=== PATIENT | male | born 1955 | race Caucasian/White ===

== ENCOUNTER → 2020-11-06 10:22 | Outpatient (BNVA) | payer MEDICARE, BC, SELFPAY | PROVIDERS: Visit Provider Nurse Practitioner | DX: K52.9 Noninfective gastroenteritis and colitis, unspecified (principal) | CPT/HCPCS: 81000 ==

== ENCOUNTER → 2021-03-29 08:45 | Outpatient (BNVA) | payer MEDICARE, BC, SELFPAY | PROVIDERS: PCP Family Medicine Adult Medicine; Visit Provider Family Medicine Adult Medicine | DX: I10 Essential (primary) hypertension (principal); N40.0 Benign prostatic hyperplasia without lower urinary tract symptoms; R63.4 Abnormal weight loss; Z13.6 Encounter for screening for cardiovascular disorders; M19.90 Unspecified osteoarthritis, unspecified site | CPT/HCPCS: 80053; 80061; 82784; 83036; 83516; 84443; 85025; G0103 ==

== ENCOUNTER → 2022-08-24 09:35 | Outpatient (BNVA) | payer MEDICARE, BC, SELFPAY | PROVIDERS: PCP Family Medicine Adult Medicine; Visit Provider Dermatology | DX: Z85.828 Personal history of other malignant neoplasm of skin (principal); Z98.890 Other specified postprocedural states | CPT/HCPCS: 88305 ==

== ENCOUNTER → 2022-09-26 14:05 | Outpatient (BNVA) | payer MEDICARE, BC, SELFPAY | PROVIDERS: PCP Family Medicine Adult Medicine; Visit Provider Surgery | DX: Z86.010 Personal history of colon polyps (principal); Z12.11 Encounter for screening for malignant neoplasm of colon | CPT/HCPCS: 99203 ==

== ENCOUNTER 2022-10-31 05:49 | Day surgery (SDC) | payer MEDICARE, BC, SELFPAY ==
[2022-10-29 10:40] VITALS: BMI 23.5
[2022-10-31 06:10] VITALS: BP 138/91; PULSE 46; RESP 17; TEMP 36.1; O2SAT 98
[2022-10-31] MEDS: sodium chloride 0.9% 1,000 ML 30 ML IV (06:11)
--- NOTE | 2022-10-31 06:52 | ANES.PREANE2 ---
Pre-Anesthetic Assessment Height/Weight: Height 1.78 m Weight 74.389 kg Temp Pulse Resp BP Pulse Ox O2 Del Method 97.0 F L 46 L 17 138/91 98 Room Air 10/31/22 06:10 10/31/22 06:10 10/31/22 06:10 10/31/22 06:10 10/31/22 06:10 10/31/22 06:10 Preop Diagnosis: history of colon polyps Operation Date: 10/31/22 07:00 Proposed Procedures p Colonoscopy 05294,Z86.010,Z12.11(Not Applicable) - Sunil Figueredo DO Familial anesthetic complications: none Was Beta Ольга taken within 24 hours: N/A Was Clonidine taken within 24 hours: N/A Last intake: Intake Last Liquid Date 10/30/22 Last Liquid Time 22:00 Last Solid Date 10/29/22 Last Solid Time 20:00 Social No alcohol and No tobacco Exam alert, oriented x 3, clear to auscultation bilaterally and regular rate & rhythm Airway Submandibular: within normal limits Cervical ROM: within normal limits Mallampati: Class II Dentition: full Pulmonary Sleep Apnea CV/HEM Hypertension None reported Hepatic None reported GI None reported Metabolic None reported Musc/skel None reported Neuropsych None reported Anesthetic Plan ASA status: 2 Anesthesia: MAC Risk of > 500 ml blood loss (7ml/kg in children): No Medications/Allergies Home Medications Medication Instructions Recorded Confirmed Last Taken Type zonisamide 100 mg capsule 100 mg PO DAILY muscle movements 02/15/21 10/31/22 10/30/22 Rx (Zonegran) #30 caps amlodipine 2.5 mg tablet 2.5 mg PO .every other day High 05/22/22 10/31/22 10/29/22 Rx blood pressure #45 tabs tamsulosin 0.4 mg capsule 0.4 mg PO DAILY PRN Prostate 08/22/22 10/31/22 10/29/22 Rx medication #90 caps amoxicillin 500 mg tablet 500 mg PO TID 10/29/22 10/31/22 10/30/22 History Allergies Allergy/AdvReac Type Severity Reaction Status Date / Time No Known Allergies Allergy Verified 10/31/22 06:03 Current Medications Generic Name Dose Route Start Last Admin Trade Name Freq PRN Reason Stop Dose Admin Sodium Chloride 1,000 mls @ 30 mls/hr 10/31/22 06:00 10/31/22 06:11 Sodium Chloride 0.9% IV 11/01/22 05:59 30 mls/hr .Q24H JUAN ANTONIO Administration PFSH Anesthesia Medical History (Updated 09/26/22 @ 15:08 by Sunil Figueredo DO) BPH (benign prostatic hyperplasia) 04/2015 COVID Positive home COVID test 01/03/2022. Essential (primary) hypertension H/O solar lentigo 07/2015 History of colon polyps History of elevated PSA PSA 2 in 2015, PSA 2.5 07/2017 & 3.3 01/2018, PSA 2.87 04/2019 Hx of herpes zoster Hyperlipidemia Myoclonus dystonia 2012 MARY (obstructive sleep apnea) CPAP 16 years ago, off now Osteoarthritis Periodic limb movement sleep disorder RLS (restless legs syndrome) Surgical History H/O hernia repair 2006 History of right inguinal hernia repair 2006 History of varicose vein ligation 2018 Hx of colonoscopy 2016 & Polyps x2 benign Family History Mother Cancer Breast and uterine Father Hypertension Dementia Alzheimer's Disease Brother Cancer skin Hypertension Social History Smoking and tobacco status: never smoked Quit status (tobacco): has quit using tobacco Year quit tobacco: 08/21/1972 Alcohol intake: former Substance/Drug Use: never Adopted: No Marital status: Number of children: 2 Number of grandchildren: 0 service: Yes Current occupational status: retired Data Anesthesia Cardiac Studies: No Data to Display
--- NOTE | 2022-10-31 07:01 | PM.HP ---
Providers/Chief Complaint Primary Care Provider: Phillip Mckeon MD Chief Complaint: Z86.010, Z12.11 History of Present Illness Harjit Garay is a 67 year old male here for colonoscopy Medications/Allergies Home Medications Medication Instructions Recorded Confirmed Last Taken Type zonisamide 100 mg capsule 100 mg PO DAILY muscle movements 02/15/21 10/31/22 10/30/22 Rx (Zonegran) #30 caps amlodipine 2.5 mg tablet 2.5 mg PO .every other day High 05/22/22 10/31/22 10/29/22 Rx blood pressure #45 tabs tamsulosin 0.4 mg capsule 0.4 mg PO DAILY PRN Prostate 08/22/22 10/31/22 10/29/22 Rx medication #90 caps amoxicillin 500 mg tablet 500 mg PO TID 10/29/22 10/31/22 10/30/22 History Allergies Allergy/AdvReac Type Severity Reaction Status Date / Time No Known Allergies Allergy Verified 10/31/22 06:03 PFSH Acute PFSH: Medical History (Updated 09/26/22 @ 15:08 by Sunil Figueredo DO) BPH (benign prostatic hyperplasia) 04/2015 COVID Positive home COVID test 01/03/2022. Essential (primary) hypertension H/O solar lentigo 07/2015 History of colon polyps History of elevated PSA PSA 2 in 2015, PSA 2.5 07/2017 & 3.3 01/2018, PSA 2.87 04/2019 Hx of herpes zoster Hyperlipidemia Myoclonus dystonia 2012 MARY (obstructive sleep apnea) CPAP 16 years ago, off now Osteoarthritis Periodic limb movement sleep disorder RLS (restless legs syndrome) Surgical History H/O hernia repair 2006 History of right inguinal hernia repair 2006 History of varicose vein ligation 2018 Hx of colonoscopy 2017 & Polyps x2 benign Family History Mother Cancer Breast and uterine Father Hypertension Dementia Alzheimer's Disease Brother Cancer skin Hypertension Social History Smoking and tobacco status: never smoked Quit status (tobacco): has quit using tobacco Year quit tobacco: 08/21/1972 Alcohol intake: former Substance/Drug Use: never Adopted: No Marital status: Number of children: 2 Number of grandchildren: 0 service: Yes Current occupational status: retired Vitals/I&O/Wt Last Vital Signs Temp 97.0 F L 10/31/22 06:10 Pulse 46 L 10/31/22 06:10 Resp 17 10/31/22 06:10 BP 138/91 10/31/22 06:10 Pulse Ox 98 10/31/22 06:10 O2 Del Method Room Air 10/31/22 06:10 Weight last 48 hrs Weight 164 lb A&P Assessment and plan (1) Colon cancer screening: Plan Colonoscopy Attestations Medical Necessity Statement*: home Coding Level of Care Code Acute Code for Chg Fwd Diagnoses Colon cancer screening Z12.11
[2022-10-31 07:33] VITALS: BP 105/67; PULSE 43; RESP 16; TEMP 36.1; O2SAT 99
[2022-10-31 07:43] VITALS: BP 104/69; PULSE 44; RESP 16; O2SAT 100
--- NOTE | 2022-10-31 14:22 | ANE.PACU2 ---
Inpatient post-anesthesia follow up: Airway intact: Yes Vital signs: Temperature 97 F Pulse Rate 44 Respiratory Rate 16 Blood Pressure 104/69 Pulse Oximetry 100 Oxygen Delivery Me thod Room Air Oxygen Flow Rate Fraction of Inspir ed Oxygen Hydration adequate: Yes Nausea and vomiting: No Pain level: 1 Mental status: Baseline
== END 2022-10-31 08:18 | disposition home or self-care (01) ==
PROVIDERS: PCP Family Medicine Adult Medicine; Visit Provider Surgery
PROC: 0DJD8ZZ Inspection of Lower Intestinal Tract, Via Natural or Artificial Opening Endoscopic (ICD-10-PCS; CPT 45378; principal; 2022-10-31 07:00)
DX: Z12.11 Encounter for screening for malignant neoplasm of colon (principal); Z86.010 Personal history of colon polyps; G47.30 Sleep apnea, unspecified; I10 Essential (primary) hypertension; K63.5 Polyp of colon
CPT/HCPCS: 45385; 88305; J2704; J3490; J7030

== ENCOUNTER 2022-11-01 10:16 | Emergency (ER) | payer MEDICARE, BC, SELFPAY ==
[2022-11-01 10:22] VITALS: BP 146/90; PULSE 43; RESP 16; TEMP 36.8; O2SAT 98; BMI 23.5
[2022-11-01 10:49] VITALS: BP 146/90; PULSE 44; O2SAT 97
--- NOTE | 2022-11-01 10:50 | ED_ITS ---
HPI - Male Genitourinary General: Chief complaint: Urogenital-Male Stated complaint: post op complications Time Seen by Provider: 11/01/22 10:29 Source: patient Mode of arrival: ambulatory History of Present Illness: 67-year-old male presents emergency room complaining difficulty with urination he was getting up about every 10 minutes to urinate last night he denies any dysuria urgency. He recently had a colonoscopy since he had the colonoscopy he had difficult time emptying his bladder and feels like he needs to go very fr equently in small amounts with no dysuria. Prior to his procedure he was having 2-3 episodes of nocturia per night. Onset (ago): day(s) Location: abdomen (suprapubic) Severity: moderate Relieving factors: urination Exacerbating factors: urination Associated symptoms: Reports nausea and urinary retention; Deny discharge, dysuria, fevers/chills, hematuria, rash, swelling, urinary incontinence, mass or vomiting Review of Systems Const: Denies: fever(s), chills, body aches, change in appetite, fatigue or malaise ENMT: Denies: throat pain, ear or mastoid pain, nasal discharge or nasal congestion Card: Denies: chest pain, edema, dyspnea on exertion or orthopnea Resp: Denies: dyspnea, productive cough or non-productive cough GI: Reports: abdominal pain and nausea; Denies: vomiting : Denies: dysuria, urinary frequency, urinary urgency, urinary incontinence or hematuria Musc: Reports: back pain Skin/Breast: Denies: rash or pruritus [facility] PFSH: Medical History BPH (benign prostatic hyperplasia) 04/2015 COVID Positive home COVID test 01/03/2022. Essential (primary) hypertension H/O solar lentigo 07/2015 History of colon polyps History of elevated PSA PSA 2 in 2015, PSA 2.5 07/2017 & 3.3 01/2018, PSA 2.87 04/2019 Hx of herpes zoster Hyperlipidemia Myoclonus dystonia 2012 MARY (obstructive sleep apnea) CPAP 16 years ago, off now Osteoarthritis Periodic limb movement sleep disorder RLS (restless legs syndrome) Surgical History H/O hernia repair 2007 History of right inguinal hernia repair 2007 History of varicose vein ligation 2018 Hx of colonoscopy 2017 & Polyps x2 benign Family History Mother Cancer Breast and uterine Father Hypertension Dementia Alzheimer's Disease Brother Cancer skin Hypertension Social History Smoking and tobacco status: never smoked Quit status (tobacco): has quit using tobacco Year quit tobacco: 08/21/1972 Alcohol intake: former Substance/Drug Use: never Adopted: No Marital status: Number of children: 2 Number of grandchildren: 0 service: Yes Current occupational status: retired Physical Exam Const: GENERAL APPEARANCE: cooperative and comfortable ORIENTATION/CON SCIOUSNESS: Yes awake, Yes oriented to person, Yes oriented to place and Yes oriented to time HENMT: COMMON NORMALS: normocephalic, atraumatic and hearing grossly normal bilaterally HEAD & SCALP: normocephalic and atraumatic Resp: COMMON NORMALS: normal respiratory effort, No retractions, No use of accessory muscles and clear to auscultation bilaterally AUSCULTATION: clear to auscultation bilaterally Cardio: COMMON NORMALS: regular rate, regular rhythm and No murmurs present (Cardio) RATE: regular rate RHYTHM: regular rhythm GI: COMMON NORMALS: No hepatosplenomegaly present AUSCULTATION: Yes normoactive bowel sounds PALPATION: Yes Tenderness to palpation present (GI) (suprapubic tender), No Guarding due to palpation present (GI) and Yes No hepatosplenomegaly present : COMMON NORMALS: Yes no CVA tenderness BLADDER/KIDNEY EXAM: Yes no CVA tenderness Back/Pelvis: COMMON NORMALS: no CVA tenderness Extremity: COMMON NORMALS: normal to inspection, capillary refill normal, no clubbing, cyanosis or edema, no calf tenderness and no pedal edema Neuro: SENSORIUM/ORIENTATION: Yes oriented to person, Yes oriented to place and Yes oriented to time Skin: COMMON NORMALS: no rashes or lesions noted GENERAL SKIN EXAM: no rashes or lesions noted Course Vital Signs: Vital signs: Vital Signs Temperature 98.2 F 11/01/22 10:22 Pulse Rate 45 L 11/01/22 12:34 Respiratory Rate 12 11/01/22 12:34 Blood Pressure 127/86 11/01/22 12:34 Pulse Oximetry 98 11/01/22 12:34 Oxygen Delivery Me thod Room Air 11/01/22 10:22 MDM - Male Medical Decision Making Patient unable to completely empty his bladder had nearly 400 mL after attempting to completely evacuate his bladder. Leg bag placed started on tamsulosin 1.4 mg twice daily. Case management make arrangements for follow-up with urology. Medical Records I reviewed the patient's medical records. Lab Data I reviewed the patient's lab results. 11/01/22 10:50 11/01/22 10:50 Laboratory Results WBC 5.2 10^3/uL (4.0-10.0) 11/01/22 10:50 RBC 4.43 10^6/uL (4.1-5.3) 11/01/22 10:50 Hgb 13.6 g/dL (11.7-16.6) 11/01/22 10:50 Hct 41.4 % (42.0-52.0) L 11/01/22 10:50 MCV 93.5 fl (80-94) 11/01/22 10:50 MCH 30.7 pg (28.0-34.0) 11/01/22 10:50 MCHC 32.9 g/dL (30.0-36.0) 11/01/22 10:50 RDW 12.4 % (12.1-15.1) 11/01/22 10:50 Plt Count 121 10^3/cmm (130-400) L 11/01/22 10:50 MPV 11.6 fL (7.4-10.4) H 11/01/22 10:50 Neut % (Auto) 52.7 % 11/01/22 10:50 Lymph % (Auto) 34.0 % 11/01/22 10:50 [place] % (Auto) 11.2 % 11/01/22 10:50 Eos % (Auto) 1.5 % 11/01/22 10:50 Baso % (Auto) 0.4 % 11/01/22 10:50 Neut # (Auto) 2.74 10^3/uL (1.8-7.7) 11/01/22 10:50 Lymph # (Auto) 1.8 10^3/uL (0.8-4.8) 11/01/22 10:50 [place] # (Auto) 0.6 10^3/uL (0.2-0.9) 11/01/22 10:50 Eos # (Auto) 0.1 10^3/uL (0.0-0.8) 11/01/22 10:50 Baso # (Auto) 0.0 10^3/uL (0.0-0.1) 11/01/22 10:50 Nucleated RBC % (auto) 0 % 11/01/22 10:50 Nucleated RBCs # 0.0 /100WBC 11/01/22 10:50 Sodium 138 mmol/L (136-145) 11/01/22 10:50 Potassium 3.9 mmol/L (3.5-5.1) 11/01/22 10:50 Chloride 106 mmol/L (98-107) 11/01/22 10:50 Carbon Dioxide 22 mmol/L (22-29) 11/01/22 10:50 Anion Gap 13.9 (5-19) 11/01/22 10:50 BUN 10 mg/dL (8-23) 11/01/22 10:50 Creatinine 0.8 mg/dL (0.7-1.2) 11/01/22 10:50 GFR Calculation 96.1 mL/min (90-130) 11/01/22 10:50 Glucose 85 mg/dL (65-115) 11/01/22 10:50 Calculated Osmolality 284 mOsm/kg (285-295) L 11/01/22 10:50 Calcium 8.9 mg/dL (8.5-10.5) 11/01/22 10:50 Urine Color Yellow (Yellow) 11/01/22 10:53 Urine Appearance Clear (CLEAR) 11/01/22 10:53 Urine pH 7 (5-7) 11/01/22 10:53 Ur Specific [place] 1.010 (1.005-1.030) 11/01/22 10:53 Urine Protein Neg (Negative) 11/01/22 10:53 Urine Glucose (UA) Norm (Normal) 11/01/22 10:53 Urine Ketones Negative (Negative) 11/01/22 10:53 Urine Blood 2+ (Negative) H 11/01/22 10:53 Urine Nitrate Negative (Negative) 11/01/22 10:53 Urine Bilirubin Neg (Negative) 11/01/22 10:53 Urine Urobilinogen Neg mg/dL (Negative) 11/01/22 10:53 Ur Leukocyte Esterase Negative (Negative) 11/01/22 10:53 Urine RBC 0-4 /hpf (0-2) H 11/01/22 10:53 Urine WBC None /hpf (0-5) 11/01/22 10:53 Ur Squamous Epith Cells None /hpf (0-5) 11/01/22 10:53 Amorphous Sediment Not Reportable 11/01/22 10:53 Urine Bacteria None /hpf (NONE) 11/01/22 10:53 Discharge Plan Discharge Patient Disposition: Home Clinical Impression: Acute retention of urine, BPH (benign prostatic hyperplasia) Condition: Stable Prescriptions: New tamsulosin 0.4 mg capsule 0.4 mg PO BID Qty: 60 0RF No Action tamsulosin 0.4 mg capsule 0.4 mg PO DAILY PRN (Reason: Prostate medication) Qty: 90 2RF amoxicillin 500 mg tablet 500 mg PO TID amlodipine 2.5 mg tablet 2.5 mg PO EVERY OTHER DAY Zonegran 100 mg capsule 200 mg PO QAM Discharge Orders: Discharge ED (Routine); Ordered 11/01/22 Ordered By: Adal Brasher Referrals: Phillip Mckeon MD [Primary Care Provider] - Discharge Diet: Usual diet Discharge Activity: Increase activity as tolerated Patient Instructions: Urinary Retention in Men (ED), Opioid Safety, Pain Management Activity Restrictions/Additional Instructions: Case Management will make arrangements for follow up with urology. Urine to collect the stone to submit for pathology Coding Level of Care Code ED Vice President Of Human Resources for Ike Gaona
[2022-11-01 11:08] LABS: Basophils % 0.4 %; Eosinophils # 0.1 10^3/uL (0.0-0.8); Eosinophils % 1.5 %; Hematocrit 41.4 % (42.0-52.0); Hemoglobin 13.6 g/dL (11.7-16.6); Lymphocytes # 1.8 10^3/uL (0.8-4.8); Mean Corpuscular HGB Conc 32.9 g/dL (30.0-36.0); Mean Corpuscular Hemoglobin 30.7 pg (28.0-34.0); Mean Corpuscular Volume 93.5 fl (80-94); Mean Platelet Volume 11.6 fL (7.4-10.4); Monocytes # 0.6 10^3/uL (0.2-0.9); Monocytes % 11.2 %; Neutrophils # 2.74 10^3/uL (1.8-7.7); Neutrophils % 52.7 %; Nucleated Red Blood Cells % 0 %; Platelet Count 121 10^3/cmm (130-400); Red Blood Count 4.43 10^6/uL (4.1-5.3); Red Cell Distribution Width 12.4 % (12.1-15.1); White Blood Count 5.2 10^3/uL (4.0-10.0)
[2022-11-01 11:11] LABS: Add Urine Microscopic? YES; Bilirubin Urine Neg (Negative); Blood Urine 2+ (Negative); Glucose Urine UA Norm (Normal); Ketones Urine Negative (Negative); Leukocyte Esterase Urine Negative (Negative); Nitrate Urine Negative (Negative); Protein Urine Neg (Negative); Urine Appearance Clear (CLEAR); Urine Color Yellow (Yellow); Urobilinogen Urine Neg (Negative); pH Urine 7 (5-7)
[2022-11-01 11:12] LABS: Add Urine Culture? No; RBC Urine 0-4 /hpf (0-2)
[2022-11-01 11:26] LABS: Anion Gap 13.9 (5-19); Blood Urea Nitrogen 10 mg/dL (8-23); Calcium 8.9 mg/dL (8.5-10.5); Carbon Dioxide 22 mmol/L (22-29); Chloride 106 mmol/L (98-107); Creatinine Clr Calc Pharmacy 91.9445; Glomerular Filtration Rate 96.1 mL/min (90-130); Glucose 85 mg/dL (65-115); Osmolality Calculated 284 mOsm/kg (285-295); Potassium 3.9 mmol/L (3.5-5.1); Sodium 138 mmol/L (136-145)
[2022-11-01 11:41] VITALS: BP 127/86; PULSE 44; RESP 19; O2SAT 98
[2022-11-01 12:34] VITALS: BP 127/86; PULSE 45; RESP 12; O2SAT 98
--- NOTE | 2022-11-02 08:19 | DCPLANNER ---
Addendum entered by Pooja Elise 11/21/22 11:19: Patient had a follow up appointment scheduled with urology - patient did attend appointment. Addendum entered by Pooja Elise 11/02/22 09:58: Patient has a follow up appointment scheduled for Saturday, November 19, 2022 at 1:[address] Quintana at urology. Original Note: community services manager had message to schedule a follow up appointment for patient with urology. community services manager sent patients information to the front office staff at urology. Patients information will be printed and reviewed. Clinic will call patient with appointment information.
== END 2022-11-01 12:35 | disposition home or self-care (01) ==
PROVIDERS: Emergency Provider Family Medicine; PCP Family Medicine Adult Medicine
DX: N40.1 Benign prostatic hyperplasia with lower urinary tract symptoms (principal); R33.8 Other retention of urine; Z87.891 Personal history of nicotine dependence; I10 Essential (primary) hypertension; E78.5 Hyperlipidemia, unspecified
CPT/HCPCS: 36415; 51702; 51798; 80048; 81001; 85025; 99283

== ENCOUNTER 2022-11-07 11:39 | Emergency (ER) | payer MEDICARE, BC, SELFPAY ==
[2022-11-07 11:46] VITALS: BP 126/78; PULSE 49; RESP 14; TEMP 36.5; O2SAT 97; BMI 23.5
--- NOTE | 2022-11-07 12:02 | W.ED.MALEGU ---
HPI - Male Genitourinary General: Chief complaint: Urogenital-Male Stated complaint: wants his catheter taken out Time Seen by Provider: 11/07/22 11:51 Source: patient and family Mode of arrival: ambulatory Limitations: no limitations History of Present Illness: Patient returns to the emergency department to have his Doe catheter removed. It was placed in the emergency department on the of this month after he had an episode of acute urinary retention which occurred shortly after a screening colonoscopy was performed. Patient states that he has been doing well since that time. He states that he has not had fevers chills or other discomfort. He states obviously the Doe catheter is little uncomfortable at times but essentially its been tolerable. He has been taking tamsulosin twice daily as previously instructed. He previously was prescribed tamsulosin but had only been taking on an intermittent basis in the past. He does describe a history of nocturia with having to get up 3-4 times at night for emptying his bladder. He has not had a prior history of urinary retention nor does he see a urologist. He denies any other constitutional complaints at this time. Associated symptoms: Deny hematuria Review of Systems Const: Denies: fever(s) or chills GI: Denies: abdominal pain : Denies: flank pain or hematuria Musc: Denies: back pain or extremity pain Skin/Breast: Denies: rash, pruritus or erythema PFSH ED PFSH: Medical History BPH (benign prostatic hyperplasia) 04/2015 COVID Positive home COVID test 01/03/2022. Essential (primary) hypertension H/O solar lentigo 07/2015 History of colon polyps History of elevated PSA PSA 2 in 2015, PSA 2.5 07/2017 & 3.3 01/2018, PSA 2.87 04/2019 Hx of herpes zoster Hyperlipidemia Myoclonus dystonia 2012 MARY (obstructive sleep apnea) CPAP 16 years ago, off now Osteoarthritis Periodic limb movement sleep disorder RLS (restless legs syndrome) Surgical History H/O hernia repair 2007 History of right inguinal hernia repair 2007 History of varicose vein ligation 2018 Hx of colonoscopy 2017 & Polyps x2 benign Family History Mother Cancer Breast and uterine Father Hypertension Dementia Alzheimer's Disease Brother Cancer skin Hypertension Social History Smoking and tobacco status: never smoked Quit status (tobacco): has quit using tobacco Year quit tobacco: 08/21/1972 Alcohol intake: former Substance/Drug Use: never Adopted: No Marital status: Number of children: 2 Number of grandchildren: 0 service: Yes Current occupational status: retired Physical Exam Narrative: EXAM NARRATIVE: The patient is alert cooperative in no acute distress. Makes good eye contact and answers questions in a goal-directed fashion. Const: COMMON NORMALS: no acute distress, average body habitus and patient oriented x3 GENERAL APPEARANCE: cooperative and comfortable ORIENTATION/CONSCIOUSNESS: Yes awake HENMT: COMMON NORMALS: normocephalic and moist oral mucous membranes HEAD & SCALP: normal to inspection and normocephalic Eye: COMMON NORMALS: Equal, round and reactive pupils present and conjunctivae normal CONJUNCTIVA: Yes conjunctivae normal PUPIL: Yes Equal, round and reactive pupils present Neck/C-Spine: COMMON NORMALS: full ROM Chest: COMMONS NORMALS: normal inspection of the chest Resp: COMMON NORMALS: normal respiratory effort EFFORT & INSPECTION: Yes able to speak in complete sentences Cardio: COMMON NORMALS: Peripheral pulses 2+ throughout PERIPHERAL PULSES: Peripheral pulses 2+ throughout GI: COMMON NORMALS: Normal to inspection, nondistended, normoactive bowel sounds present : BLADDER/KIDNEY EXAM: Yes catheter in place Catheter type (Male): urethral (Clear urine) Back/Pelvis: COMMON NORMALS: thoraco-lumbar ROM normal Extremity: COMMON NORMALS: normal to inspection and full ROM Neuro: COMMON NORMALS: patient oriented x3, moves all extremities and gait normal Skin: COMMON NORMALS: no rashes or lesions noted GENERAL SKIN EXAM: no rashes or lesions noted Course Vital Signs: Vital signs: Vital Signs Temperature 97.7 F 11/07/22 11:46 Pulse Rate 49 L 11/07/22 11:46 Respiratory Rate 14 11/07/22 11:46 Blood Pressure 126/78 11/07/22 11:46 Pulse Oximetry 97 11/07/22 11:46 Oxygen Delivery Me thod Room Air 11/07/22 11:46 MDM - Male Medical Decision Making Patient with a remote history of BPH likely who initially presented to the emergency department with an acute urinary retention and had a Doe catheter placed. Since that time he has been doing well and presented back to the emergency department to have his Doe removed as he had no other resources available to him in the terms of urology appointment was not until next week and his primary care doctor was not available today. The patient's been doing well and stable. The Doe cath will be removed and he was educated on what to expect post Doe catheter removal. We advised him to engage in normal activities including fluid intake today and to ensure that he does produce urine and normal amounts throughout the day. He was further instructed that if he did not have any urine output in 8 hours or more he should return to the emergency department for reevaluation and consideration for replacement of the catheter. He apparently has been taking tamsulosin for the last week on a twice daily basis and I advised him to continue it twice daily for 1 more day and then go back to the usual customary once daily dose. He is clinically stable has no evidence of suggest other ongoing emergency medical conditions at this time and does have urology follow-up. Discharge Plan Discharge Patient Disposition: Home Clinical Impression: Acute retention of urine, Encounter for Doe catheter removal Condition: Stable Prescriptions: No Action tamsulosin 0.4 mg capsule 0.4 mg PO DAILY PRN (Reason: Prostate medication) Qty: 90 2RF amoxicillin 500 mg tablet 500 mg PO TID amlodipine 2.5 mg tablet 2.5 mg PO EVERY OTHER DAY Zonegran 100 mg capsule 200 mg PO QAM tamsulosin 0.4 mg capsule 0.4 mg PO BID Qty: 60 0RF Discharge Orders: Discharge ED (Routine); Ordered 11/07/22 Ordered By: Donte Levy Referrals: Phillip Mckeon MD [Primary Care Provider] - Discharge Diet: Usual diet Discharge Activity: Resume usual activity Patient Instructions: Opioid Safety, Pain Management Activity Restrictions/Additional Instructions: As we discussed it is important you drink plenty of fluids today to at least 1 to 2 quarts of water in addition to what other fluids you normally drink. Ensure that you are continue to have urine output and if you do not have urine output in the next 8 hours and feel fullness bloated pressure sensation then return to this emergency department for reevaluation. If you are doing well you may reduce your tamsulosin tomorrow to once daily as we discussed. Follow-up with Dr. Quintana the urologist as scheduled. Coding Level of Care Code ED Tax Form Preparer for Ike Gaona
--- NOTE | 2022-11-07 12:21 | PC.NURSE ---
PT ROBERTSON CATHETER REMOVED. 10ML PULLED FROM CATHETER BALLOON. PT TOLERATED WELL.
--- NOTE | 2022-11-07 12:26 | PC.NURSE ---
ROBERTSON REMOVED. PATIENT TOLERATED PROCEDURE WELL.
== END 2022-11-07 12:27 | disposition home or self-care (01) ==
PROVIDERS: Emergency Provider Emergency Medicine; PCP Family Medicine Adult Medicine
DX: Z46.6 Encounter for fitting and adjustment of urinary device (principal); R33.9 Retention of urine, unspecified; Z87.891 Personal history of nicotine dependence; I10 Essential (primary) hypertension; E78.5 Hyperlipidemia, unspecified
CPT/HCPCS: 99282

== ENCOUNTER → 2022-11-14 11:22 | Outpatient (BNVA) | payer MEDICARE, BC, SELFPAY | PROVIDERS: PCP Family Medicine Adult Medicine; Visit Provider Nurse Practitioner Family | DX: L81.4 Other melanin hyperpigmentation; D22.5 Melanocytic nevi of trunk; Z71.89 Other specified counseling; L85.3 Xerosis cutis; L57.8 Other skin changes due to chronic exposure to nonionizing radiation; D36.15 Benign neoplasm of peripheral nerves and autonomic nervous system of abdomen; L72.0 Epidermal cyst; L57.0 Actinic keratosis; S80.861A Insect bite (nonvenomous), right lower leg, initial encounter; W57.XXXA Bitten or stung by nonvenomous insect and other nonvenomous arthropods, initial encounter; S80.811A Abrasion, right lower leg, initial encounter; X58.XXXA Exposure to other specified factors, initial encounter; Z85.828 Personal history of other malignant neoplasm of skin | CPT/HCPCS: 10120; 17000; 17003; 99214 ==

== ENCOUNTER → 2022-11-19 13:18 | Outpatient (BNVA) | payer MEDICARE, BC, SELFPAY | PROVIDERS: PCP Family Medicine Adult Medicine; Visit Provider Urology | DX: R33.8 Other retention of urine (principal); R31.0 Gross hematuria; N40.1 Benign prostatic hyperplasia with lower urinary tract symptoms; N13.8 Other obstructive and reflux uropathy | CPT/HCPCS: 51741; 51798; 52000; 81003; 87086; 88112; 99203 ==

== ENCOUNTER 2022-12-04 09:45 | Outpatient (CLI) | payer MEDICARE, BC, SELFPAY ==
--- NOTE | 2022-12-04 10:00 | CT_ITS ---
WS: [id number] CT ABDOMEN AND PELVIS WITH AND WITHOUT CONTRAST HISTORY: hematuria TECHNIQUE: Unenhanced 5 mm axial imaging first performed through the abdomen. Post contrast imaging t hrough the abdomen and pelvis. Oral contrast has been provided. Sagittal and coronal reformats are s ubmitted. All CT scans at [facility] use at least one of these dose optimization techniques: automated exposure control; mA and/or kV adjustment per patient size (includes targeted exams where d ose is matched to clinical indication); or iterative reconstruction. CONTRAST: Omnipaque 300; 100 mL IV. DLP: 1470.99 mGy.cm COMPARISON: None available. Subpleural 4 mm nodule LEFT lung base. Heart is normal size. No pneumonia. RIGHT kidney: 10.9 cm in length. Nonobstructing calcification mid renal pelvis 5 mm. There is an extr arenal pelvis. There are a few too small to characterize cortical hypodensities. No solid enhancing m ass. Delayed imaging demonstrates partial contrast opacification of the ureter. Tortuous proximal ure ter. There is no ureteral dilatation. There is a long segment of the ureter which does not fill with contrast. Distal ureter is normal. LEFT kidney: 10.9 cm in length. There are multiple nonobstructing calcifications in the mid to lower renal pelvis. The largest cluster of calcifications with a maximum diameter of 11 mm. No solid mass o r obstruction. Extrarenal pelvis. Distention of nearly the entire LEFT ureter. Ureter is tortuous. Well-distended urinary bladder. Prostate gland is enlarged encroaching into the bladder. Prostate radha sures 5.2 x 5.3 x 6.3 cm. No ureteral obstruction. No intraluminal filling defect. Prior to contrast filling the urinary bladder there are 2 round foci of increased density which may be recently passed calcifications. Normal liver and portal vein. Negative gallbladder and spleen. No pancreatic mass. Negative adrenal g lands. Mild atherosclerosis aorta with no aneurysm. No cord or contrast is present within the GI tract. Normal appearance of the stomach and small bowel. No obstruction. Appendix is not definitely identified. Prior abdominal wall hernia repair on the LEF T. No ascites and no adenopathy. No destructive bone lesions. CT/CT abdomen pelvis wo/w [address]2000 IMPRESSION: 1. Bilateral nephrolithiasis. No renal obstruction. 2. Single calcification RIGHT kidney measures 5 mm. 3. Several clusters of calcifications in the mid to lower LEFT renal pelvis wi th the largest cluster measuring 11 mm. 4. Only partial opacification of the RIGHT ureter. No ureteral obstruction or masses are identified. 5. There are several foci of increased density in the urinary bladder which ma y be recently passed calcifications measuring approximately 2 mm. 6. Marked prostate enlargement encroaching into the bladder. 7. No ascites or adenopathy.
[2022-12-04] MEDS: iohexol 350 mg/mL 500 mL Btl (per mL) IV (10:16)
== END 2022-12-04 09:46 | disposition home or self-care (01) ==
PROVIDERS: PCP Family Medicine Adult Medicine; Visit Provider Urology
DX: R31.0 Gross hematuria (principal); N20.0 Calculus of kidney; N28.89 Other specified disorders of kidney and ureter; N40.1 Benign prostatic hyperplasia with lower urinary tract symptoms; N13.8 Other obstructive and reflux uropathy; R33.8 Other retention of urine; M54.9 Dorsalgia, unspecified; Z86.19 Personal history of other infectious and parasitic diseases; R20.9 Unspecified disturbances of skin sensation; G25.3 Myoclonus; M19.90 Unspecified osteoarthritis, unspecified site
CPT/HCPCS: 74178; 81003; 99212; 99213; Q9967

== ENCOUNTER → 2023-04-16 09:24 | Outpatient (BNVA) | payer MEDICARE, BC, SELFPAY | PROVIDERS: PCP Family Medicine Adult Medicine; Visit Provider Nurse Practitioner Family | DX: D48.9 Neoplasm of uncertain behavior, unspecified (principal); Z85.828 Personal history of other malignant neoplasm of skin; D22.5 Melanocytic nevi of trunk; L81.4 Other melanin hyperpigmentation; L85.3 Xerosis cutis; L57.8 Other skin changes due to chronic exposure to nonionizing radiation; L72.0 Epidermal cyst; L82.0 Inflamed seborrheic keratosis | CPT/HCPCS: 17110; 99213 ==

== ENCOUNTER → 2023-12-12 08:31 | Outpatient (BNVA) | payer MEDICARE, BC, SELFPAY | PROVIDERS: PCP Family Medicine Adult Medicine; Visit Provider Nurse Practitioner Family | DX: L82.1 Other seborrheic keratosis (principal); L57.0 Actinic keratosis; M67.431 Ganglion, right wrist; D23.72 Other benign neoplasm of skin of left lower limb, including hip; Z85.828 Personal history of other malignant neoplasm of skin | CPT/HCPCS: 17000; 99213 ==

== ENCOUNTER → 2024-01-01 10:55 | Outpatient (BNVA) | payer MEDICARE, BC, SELFPAY | PROVIDERS: PCP Family Medicine Adult Medicine; Visit Provider Dermatology | DX: L72.0 Epidermal cyst (principal) | CPT/HCPCS: 10061; 11900; 99214 ==

== ENCOUNTER → 2024-01-02 08:15 | Outpatient (BNVA) | payer MEDICARE, BC, SELFPAY | PROVIDERS: PCP Family Medicine Adult Medicine; Visit Provider Podiatrist Foot & Ankle Surgery | DX: B35.1 Tinea unguium (principal) | CPT/HCPCS: 99203 ==

== ENCOUNTER → 2024-01-22 10:30 | Outpatient (BNVA) | payer MEDICARE, BC, SELFPAY | PROVIDERS: PCP Family Medicine Adult Medicine; Visit Provider Dermatology | DX: D48.5 Neoplasm of uncertain behavior of skin (principal); L21.8 Other seborrheic dermatitis | CPT/HCPCS: 11102; 11403; 12032; 99214 ==

== ENCOUNTER → 2024-09-09 08:45 | Outpatient (BNVA) | payer MEDICARE, BC, SELFPAY | PROVIDERS: Family Provider Family Medicine; PCP Family Medicine; Visit Provider Nurse Practitioner Family | DX: L82.1 Other seborrheic keratosis (principal); D23.72 Other benign neoplasm of skin of left lower limb, including hip; L81.4 Other melanin hyperpigmentation; L57.8 Other skin changes due to chronic exposure to nonionizing radiation; L73.8 Other specified follicular disorders; L70.8 Other acne; Z08 Encounter for follow-up examination after completed treatment for malignant neoplasm; Z85.828 Personal history of other malignant neoplasm of skin; L57.0 Actinic keratosis | CPT/HCPCS: 17000; 99214 ==

== ENCOUNTER → 2024-12-11 08:42 | Outpatient (BNVA) | payer MEDICARE, BC, SELFPAY | PROVIDERS: Family Provider Family Medicine; PCP Family Medicine; Visit Provider Nurse Practitioner Family | DX: L70.0 Acne vulgaris (principal); L82.1 Other seborrheic keratosis; L81.4 Other melanin hyperpigmentation; L57.8 Other skin changes due to chronic exposure to nonionizing radiation; L91.8 Other hypertrophic disorders of the skin; Z78.9 Other specified health status; L53.8 Other specified erythematous conditions; R20.8 Other disturbances of skin sensation | CPT/HCPCS: 17110; 99214 ==